=== PATIENT | male | born 1985 | race Caucasian/White ===

== ENCOUNTER → 2022-11-25 | Day surgery (SDC) | payer BC ==
[~2022-11-25] MED LIST: ACETAMINOPHEN325 M1 PO; BISOPROLOL FUMAR5 MG PO; BUPIVACAINE 0.5%/EPI 30 ML SDV INJ ONE; CEFAZOLIN SODIUM 2 GM ONE; CYCLOBENZAPRINE10 MG PO; DEXAMETHASONE SOD PHOS INJ 4 MG/ML SDV ONE; DEXMEDETOMIDINE HCL 2 ML ONE; FAMOTIDINE 20 MG/2 ML VIAL IV ONE; FENTANYL CITRATE/PF 100MCG/2 ML INJ ONE; FLUOXETINE HCL20 M1 PO; GABAPENTIN400 MG PO; GLYCOPYRROLATE INJ 0.2 MG/ML VIAL ONE; HYDROCODONE/APAP 7.5MG-325MG 1 EA TAB ONE; HYDROXYZINE HCL25 MG PO; KETAMINE HCL INJ 50 MG/ML 10 ML VIAL ONE; KETOROLAC TROMETHAMINE 30 MG/ML VIAL ONE; LACTATED RINGER'S 1,000 ML ONE; LIDOCAINE HCL 2% LOCAL INJ 5 ML SDV VIAL INJ ONE; LISINOPRIL10 MG PO; MELATONIN3 MG PO; MELOXICAM7.5 MG PO; MIDAZOLAM HCL 2 MG/2 ML VIAL ONE; MONTELUKAST SOD10 MG PO; MOUNJARO10 MG/0.5 SQ; ONDANSETRON HCL INJ 2MG/ML 2ML 2 MG/ML VIAL ONE; POVIDONE IODINE 0.05% 0.05 % ML PO ONE; PROPOFOL IV EMULSION 10 MG/ML 20 ML VIAL ONE; ROPIVACAINE 0.5% 5 MG/ML 30 ML SDV ONE; SUCCINYLCHOLINE CHLORIDE 20 MG/ML 10ML VIAL ONE
[2022-11-25] MEDS: HYDROMORPHONE 1MG/1ML INJ ONE ×2 (14:53→14:58)
[2022-11-25 15:35] VITALS: BP 113/74; PULSE 68; RESP 16; O2SAT 95
== END | disposition home or self-care (01) ==
LOC: OR 10:37
PROVIDERS: ATTEND Podiatrist Foot & Ankle Surgery
DX: M25.871 Other specified joint disorders, right ankle and foot (principal); S93.491A Sprain of other ligament of right ankle, initial encounter; M25.371 Other instability, right ankle; D17.23 Benign lipomatous neoplasm of skin and subcutaneous tissue of right leg; M77.51 Other enthesopathy of right foot and ankle; I10 Essential (primary) hypertension; J45.909 Unspecified asthma, uncomplicated; F41.9 Anxiety disorder, unspecified; F32.A Depression, unspecified; X58.XXXA Exposure to other specified factors, initial encounter; Z01.810 Encounter for preprocedural cardiovascular examination; Z79.1 Long term (current) use of non-steroidal anti-inflammatories (NSAID); Z79.85 Long-term (current) use of injectable non-insulin antidiabetic drugs; Z79.899 Other long term (current) drug therapy
CPT/HCPCS: 27695; 29897; 88304; 93005; C1713; J0330; J0690; J1100; J1170; J1885; J2001; J2250; J2405; J2704; J2795; J3010; J7121; 76000